=== PATIENT | male | born 2000 | race Caucasian/White ===

== ENCOUNTER 2025-02-16 15:11 | Emergency (ER) | payer OTHER ==
[~2025-02-16] VITALS: Ht 177.8 cm; Wt 94.9 kg
[2025-02-16] MEDS: ONDANSETRON 4MG 2ML VIAL IV ONE (16:13)
[2025-02-16] MEDS: NS (Normal Saline) 0.9% 1,000 ML IV SCH (16:15)
[2025-02-16 17:02] LABS: BASO # 0.0 10^3/uL (0.0-0.2); BASO % 0.3 % (0.0-1.0); EOS # 0.3 10^3/uL (0.0-0.5); EOS % 1.7 % (0.0-3.0); LYMPH # 0.8 10^3/uL (1.5-5.0); LYMPH % 5.7 % (24.0-44.0); MONO # 0.9 10^3/uL (0.0-0.8); MONO % 5.7 % (2.0-8.0); NEUTROPHILS # 12.8 10^3/uL (1.5-8.5); NEUTROPHILS % 86.3 % (36.0-66.0); PLATELET COUNT, AUTOMATED 283 10^3/uL (150-450)
[2025-02-16 17:31] LABS: CALCIUM LEVEL 8.8 MG/DL (8.5-10.1); CARBON DIOXIDE LEVEL 28 MMOL/L (20-31); CHLORIDE LEVEL 102 MMOL/L (98-107); CREATININE FOR GFR 1.06 MG/DL (0.70-1.30); GLOMERULAR FILTRATION RATE > 90.0 (>60); POTASSIUM SERUM 3.8 MMOL/L (3.5-5.1); SODIUM LEVEL 140 MMOL/L (136-145)
[2025-02-16 17:40] LABS: AMPHETAMINES LEVEL URINE NEGATIVE (NEGATIVE)
[2025-02-16 17:41] LABS: BARBITURATES URINE NEGATIVE (NEGATIVE); BENZODIAZEPINES URINE NEGATIVE (NEGATIVE); CANNABINOIDS URINE NEGATIVE (NEGATIVE); METHADONE URINE NEGATIVE (NEGATIVE); OPIATES URINE NEGATIVE (NEGATIVE); PHENCYCLIDINE URINE NEGATIVE (NEGATIVE)
[2025-02-16 17:53] LABS: COCAINE METABOLITE URINE POSITIVE (NEGATIVE)
[2025-02-16 18:41] VITALS: BP 138/72; TEMP 98.3; O2SAT 100
== END 2025-02-16 18:44 | disposition home or self-care (01) ==
LOC: M ED 15:11
DX: S43.014A Anterior dislocation of right humerus, initial encounter (principal); G40.89 Other seizures; F14.10 Cocaine abuse, uncomplicated; Y92.019 Unspecified place in single-family (private) house as the place of occurrence of the external cause; Y93.9 Activity, unspecified; Y99.9 Unspecified external cause status; W19.XXXA Unspecified fall, initial encounter; F17.210 Nicotine dependence, cigarettes, uncomplicated; F10.10 Alcohol abuse, uncomplicated
CPT/HCPCS: 23655; 70450; 73020; 73030; 80048; 80307; 85025; 93041; 94760; 96374; 99291; J2405; J3010